=== PATIENT | female | born 1965 | race Caucasian/White ===

== ENCOUNTER 2020-09-04 10:22 | Emergency (ER) | payer BC ==
[2020-09-04] MEDS ORDERED: DEXAMETHASONE SOD PHOSPHATE 10 MG/1 ML VIAL ONE (10:32)
[2020-09-04 10:45] VITALS: BMI 22.7
[2020-09-04 14:13] VITALS: BP 145/91; PULSE 68; TEMP 98.4
== END 2020-09-04 14:31 | disposition home or self-care (01) ==
LOC: JER 10:22
DX: T78.40XA Allergy, unspecified, initial encounter (principal)
CPT/HCPCS: 99283-25